=== PATIENT | male | born 1950 | race Caucasian/White ===

== ENCOUNTER 2016-05-25 11:51 | Emergency (ER) | payer OTHER ==
[2016-05-25 11:57] VITALS: RESP 16; TEMP 97.3
--- NOTE | 2016-05-25 12:19 | EDPHY ---
H & P Time Seen by Provider: 05/25/16 12:01 HPI/ROS: Chief complaint. Dizzy HPI. 66-year-old male here with dizziness. He felt well this morning. He went and had 45 minutes of vigorous exercise and felt fine. He was out doing errands and then on his way back to his car began to feel dizzy. He describes as spinning sensation. The horizontal got more diagonal and he fell to the ground. He did not strike his head or lose consciousness. No neck pain. His symptoms lasted about 3 minutes and now he feels back to normal. He does not and did not have headache, neck pain, chest pain. He has had previous episodes of vertigo. The patient had an aortic valve replaced in August 2015 with atrial fibrillation afterwards. It was controlled with amiodarone. He has been off amiodarone for about 6 months ROS Constitutional. no fever/chills, no weakness Eyes. no problems with vision ENT. no sore throat, no nasal drainage Cardiovascular. no chest pain Respiratory. no shortness of breath, no cough Abdominal. no abdominal pain, no nausea/vomiting, no diarrhea . no problems urinating MS. no calf pain/swelling, no neck/back pain, no joint pain Skin. no rash Lymph. no swollen glands Neuro. Vertigo and dizziness and fell down secondary to the dizziness Past Medical/Surgical History: Past medical history [place] with stents, aortic valve replacement, hypertension, anxiety, dyslipidemia, prostate cancer with prostatectomy, atrial fibrillation, hypothyroid Social History: , nonsmoker, no alcohol Smoking Status: Never smoked Physical Exam: General Appearance: Alert pleasant well-developed male no distress vital signs are stable with initial blood pressure 160/94 Eyes: Pupils equal and round no pallor or injection. ENT, Mouth: Mucous membranes are moist. Respiratory: There are no retractions, lungs are clear to auscultation. Cardiovascular: Regular rate and rhythm. Gastrointestinal: Abdomen is soft and nontender, no masses, bowel sounds normal. Neurological: Awake and alert, sensory and motor exams grossly normal. Speech is normal. Cranial nerves intact. There is no pronator drift. [id number] is normal. Walking without difficulty Skin: Warm and dry, no rashes. Musculoskeletal: Neck is supple nontender. Extremities symmetrical, full range of motion. Psychiatric: Patient is oriented X 3, there is no agitation. Constitutional: Initial Vital Signs Temperature (C) 36.3 C 05/25/16 11:53 Heart Rate 65 05/25/16 11:53 Respiratory Rate 16 05/25/16 11:53 Blood Pressure 160/94 H 05/25/16 11:53 O2 Sat (%) 96 05/25/16 11:53 O2 Delivery Mode Room Air Allergies/Adverse Reactions: No Known Allergies Allergy (Unverified 05/25/16 11:57) Home Medications: Medication Instructions Recorded Atorvastatin Calcium [Lipitor 40 40 mg PO HS 09/08/15 mg (*)] Clopidogrel Bisulfate [Plavix (*)] 75 mg PO DAILY #0 tab 09/08/15 Magnesium Oxide [Magnesium] 400 mg PO BID 09/08/15 Metoprolol Tartrate [Lopressor 25 25 mg PO BID 09/08/15 mg (*)] Sertraline HCl [Zoloft 50mg (*)] 50 mg PO DAILY 09/08/15 Amlodipine Besylate [Norvasc] 5 mg PO 05/25/16 Losartan Potassium [Cozaar 50 mg 50 mg PO 05/25/16 (*)] Medical Decision Making - Diagnostics EKG Interpretation: EKG interpreted by me shows normal sinus rhythm with left axis deviation. QRS shows mild interventricular conduction delay. 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 No significant ST elevation or depression. 1 PVC. Rate is 57 Procedures: IV normal saline, monitor ED Course/Re-evaluation: On re-evaluation patient is without symptoms. The patient and I discussed laboratory EKG studies. We discussed treatment plan including criteria for return and importance of follow-up and further evaluation. He expresses understanding and agreement I consulted and discussed the case with Dr. Farrar who is in agreement with the management and will follow the patient in the office Differential Diagnosis: I considered cardiac arrhythmia is, acute coronary syndrome, electrolyte abnormality, dehydration, orthostatic hypotension - Data Points Laboratory Results: Laboratory Results 05/25/16 12:45 05/25/16 12:45 05/25/16 05/25/16 12:45 12:45 WBC 7.31 10^3/uL 10^3/uL (3.80-9.50) RBC 5.01 10^6/uL 10^6/uL (4.40-6.38) Hgb 15.6 g/dL g/dL (13.7-17.5) Hct 45.2 % % (40.0-51.0) MCV 90.2 fL fL (81.5-99.8) MCH 31.1 pg pg (27.9-34.1) MCHC 34.5 g/dL g/dL (32.4-36.7) RDW 12.2 % % (11.5-15.2) Plt Count 183 10^3/uL 10^3/uL (150-400) MPV 10.0 fL fL (8.7-11.7) Neut % (Auto) 70.0 % % (39.3-74.2) Lymph % (Auto) 20.4 % % (15.0-45.0) Emmet % (Auto) 7.8 % % (4.5-13.0) Eos % (Auto) 0.8 % % (0.6-7.6) Baso % (Auto) 0.7 % % (0.3-1.7) Nucleat RBC Rel Count 0.0 % % (0.0-0.2) Absolute Neuts (auto) 5.12 10^3/uL 10^3/uL (1.70-6.50) Absolute Lymphs (auto) 1.49 10^3/uL 10^3/uL (1.00-3.00) Absolute Monos (auto) 0.57 10^3/uL 10^3/uL (0.30-0.80) Absolute Eos (auto) 0.06 10^3/uL 10^3/uL (0.03-0.40) Absolute Basos (auto) 0.05 10^3/uL 10^3/uL (0.02-0.10) Absolute Nucleated RBC 0.00 10^3/uL 10^3/uL (0-0.01) Immature Gran % 0.3 % % (0.0-1.1) Immature Gran # 0.02 10^3/uL 10^3/uL (0.00-0.10) Sodium 140 mEq/L mEq/L (134-144) Potassium 4.1 mEq/L mEq/L (3.5-5.2) Chloride 104 mEq/L mEq/L (97-110) Carbon Dioxide 25 mEq/l mEq/l (22-31) Anion Gap 11 mEq/L mEq/L (8-16) BUN 24 mg/dL H mg/dL (7-23) Creatinine 1.0 mg/dL mg/dL (0.7-1.3) Estimated GFR > 60 Glucose 91 mg/dL mg/dL (70-100) Calcium 9.6 mg/dL mg/dL (8.5-10.4) Troponin I < 0.012 ng/mL ng/mL (0-0.034) TSH 4.760 uIU/mL H uIU/mL (0.465-4.680) Medications Given: Discontinued Medications Sodium Chloride (Ns) 1,000 mls @ 0 mls/hr IV ONCE ONE PRN Reason: Wide Open Stop: 05/25/16 12:39 Last Admin: 05/25/16 13:05 Dose: 1,000 mls Departure - Departure Disposition: Home, Routine, Self-Care Clinical Impression: Vertigo Condition: Good Instructions: Vertigo (ED) Additional Instructions: Continue regular medication. Return for further symptoms. Follow up with Dr. Farrar in the next few days. Referrals: [facility] [Other] - As per Instructions Josef Farrar MD [Medical Doctor] - 2-3 days without fail
[2016-05-25] MEDS ORDERED: NS 1,000 ML IV ONE (12:38)
--- NOTE | 2016-05-25 12:38 | CPEKG ---
Heart Rate: 57 RR Interval: 1053 P-R Interval: 164 QRSD Interval: 148 QT Interval: 460 QTC Interval: 448 P [place]: 73 QRS [place]: -41 T Wave [place]: 2 EKG Severity - ABNORMAL ECG - EKG Impression: SINUS RHYTHM EKG Impression: VENTRICULAR PREMATURE COMPLEX EKG Impression: RBBB AND LAFB Electronically Signed By: Billy Whitlock 25-May-2016 12:42:29
[2016-05-25 12:54] LABS: % IMMATURE GRANULYOCYTES 0.3 % (0.0-1.1); ABSOLUTE IMMATURE GRANULOCYTES 0.02 10^3/uL (0.00-0.10); ADD DIFF? NO; ADD MORPH? NO; ADD SCAN? NO; ATYPICAL LYMPHOCYTE FLAG 0 (0-99); FRAGMENT RBC FLAG 0 (0-99); HEMATOCRIT 45.2 % (40.0-51.0); HEMOGLOBIN 15.6 g/dL (13.7-17.5); LEFT SHIFT FLG 0 (0-99); LIPEMIA HEMOLYSIS FLAG 90 (0-99); MEAN CELL HEMOGLOBIN 31.1 pg (27.9-34.1); MEAN CELL HEMOGLOBIN CONCENTR. 34.5 g/dL (32.4-36.7); MEAN CELL VOLUME 90.2 fL (81.5-99.8); PLATELET CLUMPS FLAG 10 (0-99); PLATELET COUNT 183 10^3/uL (150-400); RED BLOOD CELL COUNT 5.01 10^6/uL (4.40-6.38); RED CELL DISTRIBUTION WIDTH 12.2 % (11.5-15.2)
[2016-05-25 13:16] LABS: ANION GAP 11 mEq/L (8-16); CALCIUM 9.6 mg/dL (8.5-10.4); CARBON DIOXIDE 25 mEq/l (22-31); CHLORIDE 104 mEq/L (97-110); GLOMERULAR FILTRATION RATE > 60; GLUCOSE 91 mg/dL (70-100); POTASSIUM 4.1 mEq/L (3.5-5.2); SODIUM 140 mEq/L (134-144)
[2016-05-25 13:27] LABS: TROPONIN I < 0.012 ng/mL (0-0.034)
[2016-05-25 15:02] VITALS: BP 143/86; PULSE 58; O2SAT 96
== END 2016-05-25 15:04 | disposition home or self-care (01) ==
DX: R42 Dizziness and giddiness (principal); I10 Essential (primary) hypertension; I25.2 Old myocardial infarction; Z85.46 Personal history of malignant neoplasm of prostate

== ENCOUNTER 2016-12-24 10:59 | Emergency (ER) | payer OTHER ==
[2016-12-24] MEDS ORDERED: NS 500 ML IV ONE (12:13)
[2016-12-24 12:32] LABS: % IMMATURE GRANULYOCYTES 0.2 % (0.0-1.1); ABSOLUTE IMMATURE GRANULOCYTES 0.01 10^3/uL (0.00-0.10); ADD DIFF? NO; ADD MORPH? NO; ADD SCAN? NO; ATYPICAL LYMPHOCYTE FLAG 0 (0-99); FRAGMENT RBC FLAG 0 (0-99); HEMATOCRIT 47.1 % (40.0-51.0); HEMOGLOBIN 16.3 g/dL (13.7-17.5); LEFT SHIFT FLG 0 (0-99); LIPEMIA HEMOLYSIS FLAG 90 (0-99); MEAN CELL HEMOGLOBIN 31.3 pg (27.9-34.1); MEAN CELL HEMOGLOBIN CONCENTR. 34.6 g/dL (32.4-36.7); MEAN CELL VOLUME 90.6 fL (81.5-99.8); MEAN PLATELET VOLUME 9.9 fL (8.7-11.7); PLATELET CLUMPS FLAG 10 (0-99); PLATELET COUNT 187 10^3/uL (150-400); RED CELL DISTRIBUTION WIDTH 12.9 % (11.5-15.2)
[2016-12-24 13:15] LABS: ANION GAP 6 mEq/L (8-16); CALCIUM 9.8 mg/dL (8.5-10.4); CARBON DIOXIDE 24 mEq/l (22-31); CHLORIDE 103 mEq/L (97-110); CREATININE 0.9 mg/dL (0.7-1.3); GLOMERULAR FILTRATION RATE > 60; GLUCOSE 85 mg/dL (70-100); POTASSIUM 4.1 mEq/L (3.5-5.2); SODIUM 133 mEq/L (134-144)
[2016-12-24] MEDS ORDERED: GADOBUTROL 10 ML VIAL IVP ONE (14:31)
--- NOTE | 2016-12-24 14:36 | EDPHY ---
H & P Smoking Status: Never smoked <Roberto Wilsonlin B - Last Filed: 12/25/16 07:54> <Ayla Barboza Erika - Last Filed: 12/26/16 12:05> Time Seen by Provider: 12/24/16 11:53 HPI/ROS: HPI Vertigo. 66-year-old male by private vehicle. This patient has been having intermittent episodes of vertigo which he describes in a classic sense of the room spinning and motion with there is no motion. He reports this is worse when he flexes his head down to read. He reports these episodes have been going on for the last month. As workup for this he recently had a carotid artery Dopplers as well as Doppler ultrasounds of his vertebral arteries. There is a diminished signal indicating a probable obstruction involving the right vertebral artery. He reports that he has plans to travel. He is concerned about a vertebral artery dissection as a source of his vertigo which was previously attributed to labyrinthitis. He is here in the emergency department requesting imaging. He is requesting specifically an MRI a of the brain and neck. He would like to avoid radiation secondary to prior exposures. Currently he denies any vertigo. No other complaints. ROS: Constitutional: No fever, no chills. No weakness. Eyes: No discharge. No changes in vision. ENT: No sore throat. No nasal congestion or rhinorrhea. Respiratory: No cough. No shortness of breath. Cardiac: No chest pain, no palpitations. Gastrointestinal: No abdominal pain, no vomiting, no diarrhea. Genitourinary: No hematuria. No dysuria or increased frequency with urination. Musculoskeletal: No back pain. No neck pain. No myalgias or arthralgias. Skin: No rashes. Neurological: No headache. No focal weakness or altered sensation. As above. Past medical history: [place]ov[place] AV valve, anxiety, hypertension, hyperlipidemia, prostate cancer with prostatectomy, atrial fibrillation after valve replacement , [place] with stents. [employer] is Dr. Michelet De La Cruz. Social history: He works as a primary care physician. Nonsmoker. No alcohol. Exercises routinely. Physical Exam: General Appearance: Alert, no distress. This patient is responding to questions appropriately and in full sentences. This patient appears well- hydrated and well-nourished. Eyes: Pupils equal and round no pallor or injection. No lid edema, erythema or injection. Respiratory: There are no retractions, lungs are clear to auscultation with good air movement bilaterally. Cardiovascular: Regular rate and rhythm. Intermittent PVCs. No murmur appreciated. Gastrointestinal: Abdomen is soft and nontender, no masses, bowel sounds normal. No focal tenderness at McBurney's point. No Lilly sign. Neurological: Motor sensory function is grossly intact. Cranial nerves are normal. Gait is normal. Skin: Warm and dry, no rashes. Musculoskeletal: Neck is supple and nontender. Extremities are symmetrical. All joints range without pain or impingement. Psychiatric: No agitation. No depression. Database: EKG: Imaging: Contrast enhanced MRIs of the brain and neck; pending at 3:00 p.m.. Procedures: Emergency department course: IV was placed. He was given 500 cc of IV normal saline. Contrast enhanced MRIs of the brain and neck have been ordered. EKG will be obtained. 2:40 p.m., patient was sent for MRI. Repeat neurologic Assessment is nonfocal. 3:00 p.m., the patient's care was turned over to Dr. Ayla Barboza. He is currently in the MRI suite. Differential Diagnosis: The differential diagnosis on this patient includes but is not limited to peripheral etiology of vertigo verses vertebral artery dissection or other central process. This represents a partial list of diagnoses considered. These considerations are based on history, physical exam, past history, reassessment and diagnostic testing. (Darlene Wilson) Constitutional: Initial Vital Signs Temperature (C) 36.4 C 12/24/16 11:01 Heart Rate 65 12/24/16 11:01 Respiratory Rate 18 12/24/16 11:01 Blood Pressure 154/97 H 12/24/16 11:01 O2 Sat (%) 97 12/24/16 11:01 O2 Delivery Mode Room Air Allergies/Adverse Reactions: No Known Allergies Allergy (Unverified 05/25/16 11:57) Home Medications: Medication Instructions Recorded Atorvastatin Calcium [Lipitor 40 40 mg PO HS 09/08/15 mg (*)] Clopidogrel Bisulfate [Plavix (*)] 75 mg PO DAILY #0 tab 09/08/15 Magnesium Oxide [Magnesium] 400 mg PO BID 09/08/15 Metoprolol Tartrate [Lopressor 25 25 mg PO BID 09/08/15 mg (*)] Sertraline HCl [Zoloft 50mg (*)] 50 mg PO DAILY 09/08/15 Amlodipine Besylate [Norvasc] 5 mg PO 05/25/16 Losartan Potassium [Cozaar 50 mg 50 mg PO 05/25/16 (*)] Medical Decision Making <Darlene Wilson - Last Filed: 12/25/16 07:54> - Diagnostics Imaging: Discussed imaging studies w/ calliope player Radiologist <Ayla Barboza - Last Filed: 12/26/16 12:05> - Diagnostics EKG Interpretation: 12 lead EKG is interpreted in Trace master View by emergency department physician. (Ayla Barboza) ED Course/Re-evaluation: I assumed care of this patient at 15:00. MRI of the brain and neck reported to me by radiologist. The MRI of the neck shows almost complete thrombosis of the right vertebral artery. 16:[address] House, neurologist. He recommends a CT angiogram at some point in the future. He does not recommend any additional treatments at this time since the patient is already taking Pradaxa and aspirin. 16:25 Reassessed patient. Discussed followup. Plan to discharge home in good condition. He will continue his medications and follow up with his physical therapy and primary care physician. We discussed pursuing a CT angiogram when he returns from his travels. He is comfortable with this plan. (Ayla Barboza ) - Data Points Laboratory Results: Laboratory Results 12/24/16 12:23 12/24/16 12:23 Departure <Darlene Wilson - Last Filed: 12/25/16 07:54> <Ayla Barboza - Last Filed: 12/26/16 12:05> - Departure Disposition: Home, Routine, Self-Care Clinical Impression: Vertigo, Vertebral artery thrombosis Condition: Good Instructions: Vertigo (ED) Additional Instructions: Read and follow provided instructions. Follow-up with your primary care physician in 2-3 days for re-evaluation. Take medication as prescribed. Return to the emergency department for worsening symptoms or other serious concerns. You may continue your physical therapy as we discussed. You may wish to follow up for a CT angiogram for further evaluation when you return from your travels. Referrals: [facility] [Other] - As per Instructions
[2016-12-24 16:50] VITALS: BP 147/71; PULSE 54; RESP 18; TEMP 97.9; O2SAT 96
--- NOTE | 2016-12-25 10:04 | CPEKG ---
Heart Rate: 58 RR Interval: 1034 P-R Interval: 172 QRSD Interval: 140 QT Interval: 444 QTC Interval: 437 P [place]: 51 QRS [place]: -40 T Wave [place]: -7 EKG Severity - ABNORMAL ECG - EKG Impression: SINUS RHYTHM EKG Impression: RBBB AND LAFB Electronically Signed By: Ayla Barboza 26-Dec-2016 17:20:12
== END 2016-12-24 16:50 | disposition home or self-care (01) ==
DX: I74.9 Embolism and thrombosis of unspecified artery (principal); I10 Essential (primary) hypertension; E86.9 Volume depletion, unspecified; Z85.46 Personal history of malignant neoplasm of prostate
CPT/HCPCS: A9585